=== PATIENT | male | born 1955 | race African-American/Black ===

== ENCOUNTER 2021-11-17 05:19 | Inpatient (IN) | payer MEDICARE, BC ==
[~2021-11-17] VITALS: Ht 185.4 cm; Wt 81.6 kg
[2021-11-17 06:13] LABS: CHLORIDE 107 mEq/L (98-107)
[2021-11-17] MEDS ORDERED: AZITHROMYCIN 500MG/250ML 250 ML IV ONE (06:30)
[2021-11-17] MEDS ORDERED: CEFTRIAXONE 1 G PREMIX 50 ML IV ONE (06:30)
[2021-11-17] MEDS ORDERED: ONDANSETRON HCL 4MG/2ML INJ IV PRN (07:15)
[2021-11-17] MEDS ORDERED: DOCUSATE SODIUM 100MG CAPSULE PO PRN (07:15)
[2021-11-17] MEDS ORDERED: MAGNESIUM/ALUMINUM HYDROXIDE/SIMETHICONE 30ML UDC PO PRN (07:15)
[2021-11-17] MEDS ORDERED: CLONIDINE 0.1MG TABLET PO PRN (07:15)
[2021-11-17] MEDS ORDERED: CEFTRIAXONE 1 G PREMIX 50 ML IV SCH (07:15)
[2021-11-17] MEDS ORDERED: AZITHROMYCIN 500 MG in DEXT 5% WATER 250 ML IV SCH (07:15)
[2021-11-17] MEDS ORDERED: AZITHROMYCIN 500 MG in DEXT 5% WATER 250 ML IV ONE (07:21)
[2021-11-17 07:39] LABS: HEMATOCRIT. 42.5 % (42.0-52.0); HEMOGLOBIN. 14.6 g/dL (14.0-18.0); MEAN CORPUSCULAR HEMOGLOBIN 31.6 pg (28.0-32.0); MEAN CORPUSCULAR VOLUME 91.7 fL (80.0-94.0); MEAN PLATELET VOLUME 7.9 fl (7.4-10.4); PLATELET 305 x1000/uL (130-400); RED BLOOD CELL COUNT 4.63 mill/uL (4.7-6.1)
[2021-11-17 08:26] LABS: PLATELET ESTIMATE NORMAL
[2021-11-17] MEDS: AMLODIPINE 10MG TABLET PO SCH ×2 (10:25→10:37)
[2021-11-17] MEDS: ENOXAPARIN 40MG/0.4ML SYR SUBCUT SCH (10:27)
[2021-11-17 11:51] VITALS: BP 137/73
[2021-11-17 12:05] VITALS: BP 171/73
[2021-11-17] MEDS ORDERED: GUAIFENESIN-DM 200MG-20MG/10ML UDC PO PRN (13:00)
[2021-11-17] MEDS ORDERED: DEXTROSE 50% WATER 50ML SYRINGE IV PRN (13:00)
[2021-11-17] MEDS ORDERED: ALBUTEROL 6.7GM HFA INHALER ORI PRN (13:00)
[2021-11-17] MEDS: INSULIN LISPRO 100 UNITS/ML SUBCUT SCH ×3 (13:10→21:00)
[2021-11-17] MEDS: DEXAMETHASONE 4MG/ML 1ML VIAL IV SCH (13:25)
[2021-11-17 16:00] VITALS: BP 138/79
[2021-11-17] MEDS: BLOOD SUGAR DIAGNOSTIC STRIP TEST SCH ×2 (17:33→21:00)
[2021-11-17 20:37] VITALS: BP 134/86
[2021-11-17 23:59] VITALS: BP 129/75
[2021-11-18 04:00] VITALS: BP 130/77
[2021-11-18 06:28] LABS: CHLORIDE 108 mEq/L (98-107)
[2021-11-18 06:32] LABS: HEMATOCRIT. 39.5 % (42.0-52.0); HEMOGLOBIN. 13.8 g/dL (14.0-18.0); MEAN CORPUSCULAR HEMOGLOBIN 31.8 pg (28.0-32.0); MEAN PLATELET VOLUME 8.2 fl (7.4-10.4); PLATELET 373 x1000/uL (130-400); RED BLOOD CELL COUNT 4.34 mill/uL (4.7-6.1); RED CELL DISTRIBUTION WIDTH 13.8 % (11.6-14.6)
[2021-11-18 06:37] LABS: HDL CHOLESTEROL 28 mg/dL (40-59); LDL CHOLESTEROL 82 mg/dL (5-100)
[2021-11-18 06:45] LABS: CLARITY URINE CLEAR (CLEAR); COLOR URINE YELLOW (YELLOW); KETONES URINE NEGATIVE (NEGATIVE); LEUKOCYTE ESTERASE URINE NEGATIVE (NEGATIVE); NITRITE URINE NEGATIVE (NEGATIVE); OCCULT BLOOD URINE TRACE (NEGATIVE); PROTEIN URINE 2+ (NEGATIVE); SPECIFIC GRAVITY URINE 1.024 (1.005-1.030); UROBILINOGEN URINE 0.2 E.U./dL (0.2-1.0)
[2021-11-18] MEDS: CEFTRIAXONE 1,000 MG in DEXTROSE 5% WATER 50 ML IV SCH (07:14)
[2021-11-18 08:00] VITALS: BP 125/78
[2021-11-18] MEDS: INSULIN LISPRO 100 UNITS/ML SUBCUT SCH ×4 (08:10→21:00)
[2021-11-18] MEDS: BLOOD SUGAR DIAGNOSTIC STRIP TEST SCH ×4 (08:12→21:23)
[2021-11-18] MEDS: AZITHROMYCIN 500MG in DEXTROSE 5% WATER 250ML IV SCH (09:32)
[2021-11-18] MEDS: DEXAMETHASONE 4MG/ML 1ML VIAL IV SCH (09:32)
[2021-11-18] MEDS: ENOXAPARIN 40MG/0.4ML SYR SUBCUT SCH (09:32)
[2021-11-18 10:40] LABS: PLATELET ESTIMATE NORMAL
[2021-11-18] MEDS: ACETAMINOPHEN 325MG TABLET PO PRN ×2 (10:44→23:37)
[2021-11-18 12:00] VITALS: BP 121/72
[2021-11-18 16:00] VITALS: BP 125/78
[2021-11-18 20:39] VITALS: BP 140/87
[2021-11-18] MEDS: GUAIFENESIN 200MG/10ML SUGAR FREE UDC PO PRN (23:37)
[2021-11-19] VITALS (7 sets, daily range): BP systolic 115–134; BP diastolic 69–78
[2021-11-19] MEDS: GUAIFENESIN 200MG/10ML SUGAR FREE UDC PO PRN ×2 (04:44→21:11)
[2021-11-19] MEDS: INSULIN LISPRO 100 UNITS/ML SUBCUT SCH ×4 (07:39→21:00)
[2021-11-19] MEDS: BLOOD SUGAR DIAGNOSTIC STRIP TEST SCH ×4 (07:39→21:06)
[2021-11-19] MEDS: DEXAMETHASONE 4MG/ML 1ML VIAL IV SCH (08:15)
[2021-11-19] MEDS: AZITHROMYCIN 500MG in DEXTROSE 5% WATER 250ML IV SCH (08:15)
[2021-11-19] MEDS: CEFTRIAXONE 1,000 MG in DEXTROSE 5% WATER 50 ML IV SCH (08:16)
[2021-11-19] MEDS: ENOXAPARIN 40MG/0.4ML SYR SUBCUT SCH (08:20)
[2021-11-19] MEDS: AMLODIPINE 10MG TABLET PO SCH (08:20)
[2021-11-19] MEDS: ACETAMINOPHEN 325MG TABLET PO PRN ×2 (10:21→21:12)
[2021-11-19] MEDS: CHOLECALCIFEROL (D3) 1000 UNIT TABLET PO SCH (12:29)
[2021-11-19] MEDS: ASCORBIC ACID 250 MG TABLET PO SCH (12:29)
[2021-11-19] MEDS: ZINC SULFATE 220 MG ( 50 ) CAPSULE PO SCH (12:29)
[2021-11-19] MEDS ORDERED: NALOXONE HCL 0.4MG/ML VIAL IV PRN (22:00)
[2021-11-20 04:00] VITALS: BP 133/72
[2021-11-20] MEDS: BLOOD SUGAR DIAGNOSTIC STRIP TEST SCH ×4 (05:56→21:00)
[2021-11-20] MEDS: CEFTRIAXONE 1,000 MG in DEXTROSE 5% WATER 50 ML IV SCH (06:06)
[2021-11-20] MEDS: AZITHROMYCIN 500MG in DEXTROSE 5% WATER 250ML IV SCH (06:07)
[2021-11-20] MEDS: INSULIN LISPRO 100 UNITS/ML SUBCUT SCH ×2 (08:10→13:10)
[2021-11-20] MEDS: DEXAMETHASONE 4MG/ML 1ML VIAL IV SCH (08:41)
[2021-11-20] MEDS: CHOLECALCIFEROL (D3) 1000 UNIT TABLET PO SCH (08:42)
[2021-11-20] MEDS: ENOXAPARIN 40MG/0.4ML SYR SUBCUT SCH (08:42)
[2021-11-20] MEDS: ASCORBIC ACID 250 MG TABLET PO SCH (08:42)
[2021-11-20] MEDS: ZINC SULFATE 220 MG ( 50 ) CAPSULE PO SCH (08:42)
[2021-11-20] MEDS: AMLODIPINE 10MG TABLET PO SCH (08:44)
[2021-11-20] MEDS: HYDROCODONE/ACETAMINOPHEN 5/325MG TABLET PO PRN (08:46)
[2021-11-20 09:00] VITALS: BP 154/80
[2021-11-20 20:00] VITALS: BP 123/71
[2021-11-20] MEDS ORDERED: LACTULOSE 20G/30ML UDC PO PRN (21:00)
[2021-11-21 06:30] VITALS: BP 143/72
[2021-11-21] MEDS: BLOOD SUGAR DIAGNOSTIC STRIP TEST SCH ×4 (07:40→21:00)
[2021-11-21] MEDS: INSULIN LISPRO 100 UNITS/ML SUBCUT SCH ×4 (08:10→21:00)
[2021-11-21] MEDS: ASCORBIC ACID 250 MG TABLET PO SCH (08:22)
[2021-11-21] MEDS: CEFTRIAXONE 1,000 MG in DEXTROSE 5% WATER 50 ML IV SCH (08:22)
[2021-11-21] MEDS: AZITHROMYCIN 500MG in DEXTROSE 5% WATER 250ML IV SCH (08:22)
[2021-11-21] MEDS: ZINC SULFATE 220 MG ( 50 ) CAPSULE PO SCH (08:22)
[2021-11-21] MEDS: CHOLECALCIFEROL (D3) 1000 UNIT TABLET PO SCH (08:22)
[2021-11-21] MEDS: ENOXAPARIN 40MG/0.4ML SYR SUBCUT SCH (08:22)
[2021-11-21] MEDS: AMLODIPINE 10MG TABLET PO SCH (08:23)
[2021-11-21] MEDS: DEXAMETHASONE 4MG/ML 1ML VIAL IV SCH (08:23)
[2021-11-21] MEDS: GUAIFENESIN 200MG/10ML SUGAR FREE UDC PO PRN (09:19)
[2021-11-21] MEDS: HYDROCODONE/ACETAMINOPHEN 5/325MG TABLET PO PRN ×2 (09:47→18:37)
[2021-11-21] MEDS: GUAIFENESIN 600MG ER TABLET PO SCH ×2 (10:33→21:18)
[2021-11-21 11:56] VITALS: BP 139/73
[2021-11-22] MEDS: ACETAMINOPHEN 325MG TABLET PO PRN (03:27)
[2021-11-22] MEDS: BLOOD SUGAR DIAGNOSTIC STRIP TEST SCH ×4 (06:26→21:00)
[2021-11-22] MEDS: CEFTRIAXONE 1,000 MG in DEXTROSE 5% WATER 50 ML IV SCH (06:27)
[2021-11-22] MEDS: INSULIN LISPRO 100 UNITS/ML SUBCUT SCH ×4 (08:10→21:00)
[2021-11-22] MEDS: AMLODIPINE 10MG TABLET PO SCH (09:00)
[2021-11-22] MEDS: ZINC SULFATE 220 MG ( 50 ) CAPSULE PO SCH (10:18)
[2021-11-22] MEDS: DEXAMETHASONE 4MG/ML 1ML VIAL IV SCH (10:18)
[2021-11-22] MEDS: ENOXAPARIN 40MG/0.4ML SYR SUBCUT SCH (10:18)
[2021-11-22] MEDS: GUAIFENESIN 600MG ER TABLET PO SCH ×2 (10:19→21:00)
[2021-11-22] MEDS: CHOLECALCIFEROL (D3) 1000 UNIT TABLET PO SCH (10:19)
[2021-11-22] MEDS: ASCORBIC ACID 250 MG TABLET PO SCH (10:19)
[2021-11-22 13:29] VITALS: BP 143/76
[2021-11-22 16:50] VITALS: BP 137/79
[2021-11-22 20:00] VITALS: BP 134/74
[2021-11-23] MEDS: BLOOD SUGAR DIAGNOSTIC STRIP TEST SCH ×4 (07:40→20:56)
[2021-11-23] MEDS: INSULIN LISPRO 100 UNITS/ML SUBCUT SCH ×4 (07:51→20:56)
[2021-11-23] MEDS: AMLODIPINE 10MG TABLET PO SCH (08:09)
[2021-11-23] MEDS ORDERED: SODIUM CHLORIDE 45ML SPRAY NS PRN (08:15)
[2021-11-23] MEDS: DEXAMETHASONE 4MG/ML 1ML VIAL IV SCH (09:31)
[2021-11-23] MEDS: ASCORBIC ACID 250 MG TABLET PO SCH (09:31)
[2021-11-23] MEDS: CHOLECALCIFEROL (D3) 1000 UNIT TABLET PO SCH (09:31)
[2021-11-23] MEDS: CEFTRIAXONE 1,000 MG in DEXTROSE 5% WATER 50 ML IV SCH (09:31)
[2021-11-23] MEDS: ZINC SULFATE 220 MG ( 50 ) CAPSULE PO SCH (09:31)
[2021-11-23] MEDS: GUAIFENESIN 600MG ER TABLET PO SCH ×2 (09:31→23:41)
[2021-11-23] MEDS: ENOXAPARIN 40MG/0.4ML SYR SUBCUT SCH (09:33)
[2021-11-23] MEDS: HYDROCODONE/ACETAMINOPHEN 5/325MG TABLET PO PRN ×2 (11:24→17:49)
[2021-11-23 12:00] VITALS: BP 154/90
[2021-11-23] MEDS: ACETAMINOPHEN 325MG TABLET PO PRN ×2 (13:52→23:41)
[2021-11-23] MEDS ORDERED: LORAZEPAM 2MG/ML CPJ IV PRN (14:45)
[2021-11-23 16:00] VITALS: BP 155/91
[2021-11-23] MEDS: ALBUTEROL 6.7GM HFA INHALER ORI SCH ×2 (17:49→22:00)
[2021-11-23 20:00] VITALS: BP 117/80
[2021-11-24 00:12] VITALS: BP 160/94
[2021-11-24] MEDS: HYDROCODONE/ACETAMINOPHEN 5/325MG TABLET PO PRN (03:57)
[2021-11-24] MEDS: ALBUTEROL 6.7GM HFA INHALER ORI SCH ×4 (04:00→21:50)
[2021-11-24] MEDS: BLOOD SUGAR DIAGNOSTIC STRIP TEST SCH ×4 (07:13→21:55)
[2021-11-24] MEDS: INSULIN LISPRO 100 UNITS/ML SUBCUT SCH ×4 (07:17→21:00)
[2021-11-24 07:55] VITALS: BP 118/81
[2021-11-24] MEDS: AMLODIPINE 10MG TABLET PO SCH (09:00)
[2021-11-24] MEDS: ENOXAPARIN 40MG/0.4ML SYR SUBCUT SCH (09:00)
[2021-11-24] MEDS: ASCORBIC ACID 250 MG TABLET PO SCH (09:09)
[2021-11-24] MEDS: GUAIFENESIN 600MG ER TABLET PO SCH ×2 (09:09→21:49)
[2021-11-24] MEDS: ZINC SULFATE 220 MG ( 50 ) CAPSULE PO SCH (09:09)
[2021-11-24] MEDS: DEXAMETHASONE 4MG/ML 1ML VIAL IV SCH (09:09)
[2021-11-24] MEDS: CHOLECALCIFEROL (D3) 1000 UNIT TABLET PO SCH (09:09)
[2021-11-24 15:50] VITALS: BP 147/90
[2021-11-24 23:01] VITALS: BP 132/79
[2021-11-25] MEDS: ALBUTEROL 6.7GM HFA INHALER ORI SCH ×4 (05:48→21:45)
[2021-11-25 06:00] VITALS: BP 139/79
[2021-11-25 06:58] LABS: HEMATOCRIT. 45.7 % (42.0-52.0); HEMOGLOBIN. 15.3 g/dL (14.0-18.0); MEAN CORPUSCULAR VOLUME 92.7 fL (80.0-94.0); MEAN PLATELET VOLUME 8.2 fl (7.4-10.4); PLATELET 283 x1000/uL (130-400); RED BLOOD CELL COUNT 4.93 mill/uL (4.7-6.1); RED CELL DISTRIBUTION WIDTH 13.6 % (11.6-14.6)
[2021-11-25 07:40] LABS: CHLORIDE 103 mEq/L (98-107)
[2021-11-25] MEDS: BLOOD SUGAR DIAGNOSTIC STRIP TEST SCH ×4 (07:40→21:45)
[2021-11-25] MEDS: INSULIN LISPRO 100 UNITS/ML SUBCUT SCH ×4 (08:10→21:00)
[2021-11-25] MEDS: CHOLECALCIFEROL (D3) 1000 UNIT TABLET PO SCH (08:26)
[2021-11-25] MEDS: AMLODIPINE 10MG TABLET PO SCH (08:26)
[2021-11-25] MEDS: ZINC SULFATE 220 MG ( 50 ) CAPSULE PO SCH (08:26)
[2021-11-25] MEDS: ASCORBIC ACID 250 MG TABLET PO SCH (08:26)
[2021-11-25] MEDS: ACETAMINOPHEN 325MG TABLET PO PRN ×2 (08:26→23:15)
[2021-11-25] MEDS: GUAIFENESIN 600MG ER TABLET PO SCH ×2 (08:26→21:00)
[2021-11-25] MEDS: ENOXAPARIN 40MG/0.4ML SYR SUBCUT SCH ×2 (08:27→08:39)
[2021-11-25] MEDS: DEXAMETHASONE 4MG/ML 1ML VIAL IV SCH (09:19)
[2021-11-25 12:00] VITALS: BP 144/82
[2021-11-25 12:10] LABS: PLATELET ESTIMATE NORMAL
[2021-11-25 21:45] VITALS: BP 145/81
[2021-11-25] MEDS: GUAIFENESIN 200MG/10ML SUGAR FREE UDC PO PRN (23:15)
[2021-11-26] MEDS: ALBUTEROL 6.7GM HFA INHALER ORI SCH ×4 (04:00→21:08)
[2021-11-26] MEDS: BLOOD SUGAR DIAGNOSTIC STRIP TEST SCH ×4 (07:40→21:06)
[2021-11-26] MEDS: INSULIN LISPRO 100 UNITS/ML SUBCUT SCH ×4 (08:10→21:00)
[2021-11-26] MEDS: ASCORBIC ACID 250 MG TABLET PO SCH (08:51)
[2021-11-26] MEDS: ZINC SULFATE 220 MG ( 50 ) CAPSULE PO SCH (08:51)
[2021-11-26] MEDS: GUAIFENESIN 600MG ER TABLET PO SCH ×2 (08:51→21:07)
[2021-11-26] MEDS: CHOLECALCIFEROL (D3) 1000 UNIT TABLET PO SCH (08:51)
[2021-11-26] MEDS: AMLODIPINE 10MG TABLET PO SCH (08:52)
[2021-11-26] MEDS: ACETAMINOPHEN 325MG TABLET PO PRN ×2 (08:52→21:07)
[2021-11-26] MEDS: DEXAMETHASONE 4MG/ML 1ML VIAL IV SCH (08:52)
[2021-11-26] MEDS: ENOXAPARIN 40MG/0.4ML SYR SUBCUT SCH (08:53)
[2021-11-26 09:09] VITALS: BP 147/83
[2021-11-26 16:04] VITALS: BP 140/88
[2021-11-26 19:30] VITALS: BP 156/95
[2021-11-26 20:00] VITALS: BP 140/88
[2021-11-26] MEDS: HYDROCODONE/ACETAMINOPHEN 5/325MG TABLET PO PRN (23:56)
[2021-11-27] VITALS: BP 130/80
[2021-11-27 04:00] VITALS: BP 132/82
[2021-11-27] MEDS: ALBUTEROL 6.7GM HFA INHALER ORI SCH ×4 (04:00→20:27)
[2021-11-27] MEDS: BLOOD SUGAR DIAGNOSTIC STRIP TEST SCH ×4 (07:35→20:20)
[2021-11-27 08:00] VITALS: BP 144/89
[2021-11-27] MEDS: INSULIN LISPRO 100 UNITS/ML SUBCUT SCH ×4 (08:15→20:27)
[2021-11-27] MEDS: ENOXAPARIN 40MG/0.4ML SYR SUBCUT SCH ×2 (09:00→09:28)
[2021-11-27] MEDS: AMLODIPINE 10MG TABLET PO SCH ×2 (09:00→09:28)
[2021-11-27] MEDS: ASCORBIC ACID 250 MG TABLET PO SCH (09:27)
[2021-11-27] MEDS: ZINC SULFATE 220 MG ( 50 ) CAPSULE PO SCH (09:27)
[2021-11-27] MEDS: GUAIFENESIN 600MG ER TABLET PO SCH ×2 (09:28→20:20)
[2021-11-27] MEDS: CHOLECALCIFEROL (D3) 1000 UNIT TABLET PO SCH (09:28)
[2021-11-27] MEDS: DEXAMETHASONE 4MG/ML 1ML VIAL IV SCH (09:29)
[2021-11-27 12:00] VITALS: BP 128/89
[2021-11-27 16:00] VITALS: BP 143/89
[2021-11-28] MEDS: ALBUTEROL 6.7GM HFA INHALER ORI SCH ×4 (04:00→21:34)
[2021-11-28] MEDS: INSULIN LISPRO 100 UNITS/ML SUBCUT SCH ×4 (07:39→21:31)
[2021-11-28] MEDS: BLOOD SUGAR DIAGNOSTIC STRIP TEST SCH ×4 (07:39→21:31)
[2021-11-28 08:00] VITALS: BP 146/82
[2021-11-28] MEDS: ZINC SULFATE 220 MG ( 50 ) CAPSULE PO SCH (09:31)
[2021-11-28] MEDS: ASCORBIC ACID 250 MG TABLET PO SCH (09:32)
[2021-11-28] MEDS: ENOXAPARIN 40MG/0.4ML SYR SUBCUT SCH (09:32)
[2021-11-28] MEDS: GUAIFENESIN 600MG ER TABLET PO SCH ×2 (09:32→21:32)
[2021-11-28] MEDS: CHOLECALCIFEROL (D3) 1000 UNIT TABLET PO SCH (09:32)
[2021-11-28] MEDS: AMLODIPINE 10MG TABLET PO SCH (09:32)
[2021-11-28 15:05] LABS: BG BASE EXCESS 4.9 mmol/L (-2.0-2.0); BG FRACTION INSPIRED OXYGEN 100; BG HCO3 ACT 27.7 mmol/L (22.0-26.0); BG PCO2 35.2 mmHg (35.0-45.0); BG PH 7.514 (7.350-7.450); BG PO2 82.6 mmHg (75.0-100.0); BG SAMPLE SITE RIGHT RADIAL; BG VENT MODE HIGH FLOW
[2021-11-28 16:00] VITALS: BP 131/79
[2021-11-28] MEDS: DEXAMETHASONE 10 MG/ML VIAL IV SCH (18:11)
[2021-11-28 20:00] VITALS: BP_SYST 135; BP_SYST 138; BP_DIAS 78; BP_DIAS 84
[2021-11-28] MEDS: ACETAMINOPHEN 325MG TABLET PO PRN (21:33)
[2021-11-29] MEDS: ALBUTEROL 6.7GM HFA INHALER ORI SCH ×4 (03:57→22:00)
[2021-11-29 04:00] VITALS: BP 145/79
[2021-11-29] MEDS: BLOOD SUGAR DIAGNOSTIC STRIP TEST SCH ×4 (07:16→21:57)
[2021-11-29] MEDS: INSULIN LISPRO 100 UNITS/ML SUBCUT SCH ×4 (07:16→21:56)
[2021-11-29 08:00] VITALS: BP 143/80
[2021-11-29] MEDS: CHOLECALCIFEROL (D3) 1000 UNIT TABLET PO SCH (09:00)
[2021-11-29] MEDS: DEXAMETHASONE 10 MG/ML VIAL IV SCH (10:04)
[2021-11-29] MEDS: ASCORBIC ACID 250 MG TABLET PO SCH (10:04)
[2021-11-29] MEDS: AMLODIPINE 10MG TABLET PO SCH (10:04)
[2021-11-29] MEDS: ZINC SULFATE 220 MG ( 50 ) CAPSULE PO SCH (10:04)
[2021-11-29] MEDS: ENOXAPARIN 40MG/0.4ML SYR SUBCUT SCH (10:06)
[2021-11-29] MEDS: GUAIFENESIN 600MG ER TABLET PO SCH ×2 (10:12→21:56)
[2021-11-29 12:00] VITALS: BP 158/89
[2021-11-29 16:00] VITALS: BP 137/86
[2021-11-29] MEDS: ACETAMINOPHEN 325MG TABLET PO PRN ×2 (17:49→23:48)
[2021-11-29] MEDS ORDERED: NALOXONE HCL 0.4MG/ML VIAL IV PRN (19:00)
[2021-11-29] MEDS: HYDROCODONE/APAP 7.5/325MG 1 TAB TABLET PO PRN (19:17)
[2021-11-29 20:00] VITALS: BP 168/101
[2021-11-30] VITALS: BP 131/88
[2021-11-30 04:00] VITALS: BP 136/92
[2021-11-30] MEDS: ALBUTEROL 6.7GM HFA INHALER ORI SCH ×4 (04:00→20:30)
[2021-11-30 04:32] LABS: BG BASE EXCESS 0.6 mmol/L (-2.0-2.0); BG CARBOXYHEMOGLOBIN 0.3 % (0.5-1.5); BG DEOXYHEMOGLOBIN 14.5 % (0.0-5.0); BG FRACTION INSPIRED OXYGEN 100; BG HCO3 ACT 26.2 mmol/L (22.0-26.0); BG METHEMOGLOBIN 0.3 % (0.0-1.5); BG OXYGEN SATURATION 85.4 % (92.0-98.5); BG OXYHEMOGLOBIN 84.9 % (94.0-97.0); BG PCO2 45.7 mmHg (35.0-45.0); BG PH 7.377 (7.350-7.450); BG PO2 53.3 mmHg (75.0-100.0); BG SAMPLE SITE RIGHT RADIAL; BG TOTAL HEMOGLOBIN 14.9 g/dL (12.0-18.0); BG TOTAL RESPIRATORY RATE 47 b/min
[2021-11-30] MEDS: HYDROCODONE/APAP 7.5/325MG 1 TAB TABLET PO PRN (05:19)
[2021-11-30] MEDS: BLOOD SUGAR DIAGNOSTIC STRIP TEST SCH ×4 (07:02→20:30)
[2021-11-30 08:00] VITALS: BP 147/87
[2021-11-30] MEDS: INSULIN LISPRO 100 UNITS/ML SUBCUT SCH ×4 (08:10→20:36)
[2021-11-30] MEDS: ENOXAPARIN 40MG/0.4ML SYR SUBCUT SCH (09:00)
[2021-11-30] MEDS: AMLODIPINE 10MG TABLET PO SCH (09:00)
[2021-11-30] MEDS: ASCORBIC ACID 250 MG TABLET PO SCH (09:03)
[2021-11-30] MEDS: DEXAMETHASONE 10 MG/ML VIAL IV SCH (09:03)
[2021-11-30] MEDS: ZINC SULFATE 220 MG ( 50 ) CAPSULE PO SCH (09:03)
[2021-11-30] MEDS: CHOLECALCIFEROL (D3) 1000 UNIT TABLET PO SCH (09:03)
[2021-11-30] MEDS: GUAIFENESIN 600MG ER TABLET PO SCH ×2 (09:04→20:29)
[2021-11-30 12:00] VITALS: BP 127/78
[2021-11-30 16:23] VITALS: BP 148/89
[2021-11-30 20:01] VITALS: BP 139/74
[2021-12-01 00:07] VITALS: BP 101/51
[2021-12-01 04:00] VITALS: BP 131/74
[2021-12-01] MEDS: ALBUTEROL 6.7GM HFA INHALER ORI SCH ×4 (04:00→21:32)
[2021-12-01] MEDS: INSULIN LISPRO 100 UNITS/ML SUBCUT SCH ×4 (05:29→21:31)
[2021-12-01] MEDS: BLOOD SUGAR DIAGNOSTIC STRIP TEST SCH ×4 (05:29→21:29)
[2021-12-01 08:00] VITALS: BP 146/85
[2021-12-01] MEDS: AMLODIPINE 10MG TABLET PO SCH (09:00)
[2021-12-01] MEDS: ENOXAPARIN 40MG/0.4ML SYR SUBCUT SCH (09:00)
[2021-12-01] MEDS: GUAIFENESIN 600MG ER TABLET PO SCH ×2 (09:21→21:29)
[2021-12-01] MEDS: ZINC SULFATE 220 MG ( 50 ) CAPSULE PO SCH (09:21)
[2021-12-01] MEDS: CHOLECALCIFEROL (D3) 1000 UNIT TABLET PO SCH (09:21)
[2021-12-01] MEDS: ASCORBIC ACID 250 MG TABLET PO SCH (09:21)
[2021-12-01] MEDS: DEXAMETHASONE 10 MG/ML VIAL IV SCH (09:21)
[2021-12-01] MEDS ORDERED: METOPROLOL TARTRATE 5MG/5ML VIAL IV PRN (10:45)
[2021-12-01] MEDS: METOPROLOL TARTRATE 25MG TABLET PO SCH ×2 (11:09→21:29)
[2021-12-01 12:00] VITALS: BP 106/68
[2021-12-01 16:00] VITALS: BP 106/76
[2021-12-01 20:00] VITALS: BP 117/73
[2021-12-02] VITALS (19 sets, daily range): BP systolic 107–139; BP diastolic 54–89
[2021-12-02] MEDS: ALBUTEROL (0.083%) 2.5MG/3ML NEB HHN SCH ×3 (00:25→13:25)
[2021-12-02 06:01] LABS: HEMATOCRIT. 39.7 % (42.0-52.0); HEMOGLOBIN. 12.9 g/dL (14.0-18.0); MEAN CORPUSCULAR HEMOGLOBIN 30.3 pg (28.0-32.0); MEAN CORPUSCULAR VOLUME 93.3 fL (80.0-94.0); MEAN PLATELET VOLUME 9.8 fl (7.4-10.4); PLATELET 94 x1000/uL (130-400); RED BLOOD CELL COUNT 4.26 mill/uL (4.7-6.1); RED CELL DISTRIBUTION WIDTH 13.6 % (11.6-14.6)
[2021-12-02] MEDS: INSULIN LISPRO 100 UNITS/ML SUBCUT SCH ×4 (08:00→20:54)
[2021-12-02] MEDS: BLOOD SUGAR DIAGNOSTIC STRIP TEST SCH ×4 (08:05→20:54)
[2021-12-02] MEDS: METOPROLOL TARTRATE 25MG TABLET PO SCH ×2 (08:05→20:54)
[2021-12-02] MEDS: AMLODIPINE 10MG TABLET PO SCH (08:09)
[2021-12-02] MEDS: DEXAMETHASONE 10 MG/ML VIAL IV SCH (08:14)
[2021-12-02] MEDS: ASCORBIC ACID 250 MG TABLET PO SCH (08:14)
[2021-12-02] MEDS: GUAIFENESIN 600MG ER TABLET PO SCH ×2 (08:14→20:53)
[2021-12-02] MEDS: ZINC SULFATE 220 MG ( 50 ) CAPSULE PO SCH (08:14)
[2021-12-02] MEDS: CHOLECALCIFEROL (D3) 1000 UNIT TABLET PO SCH (08:14)
[2021-12-02] MEDS: ENOXAPARIN 40MG/0.4ML SYR SUBCUT SCH (08:19)
[2021-12-02 13:07] LABS: PLATELET ESTIMATE DECREASED
[2021-12-02] MEDS ORDERED: IPRATROPIUM/ALBUTEROL 0.5-3(2.5)MG/3ML NEB HHN PRN (14:45)
[2021-12-03] VITALS (62 sets, daily range): BP systolic 53–127; BP diastolic 14–78
[2021-12-03] MEDS: IPRATROPIUM/ALBUTEROL 0.5-3(2.5)MG/3ML NEB HHN SCH ×4 (04:24→20:53)
[2021-12-03] MEDS: BLOOD SUGAR DIAGNOSTIC STRIP TEST SCH ×3 (07:30→21:00)
[2021-12-03] MEDS: INSULIN LISPRO 100 UNITS/ML SUBCUT SCH ×4 (07:39→21:00)
[2021-12-03] MEDS: ENOXAPARIN 40MG/0.4ML SYR SUBCUT SCH (09:00)
[2021-12-03] MEDS: AMLODIPINE 10MG TABLET PO SCH (09:00)
[2021-12-03] MEDS: METOPROLOL TARTRATE 25MG TABLET PO SCH ×2 (09:00→21:00)
[2021-12-03] MEDS: GUAIFENESIN 600MG ER TABLET PO SCH ×2 (09:11→21:00)
[2021-12-03] MEDS: ASCORBIC ACID 250 MG TABLET PO SCH (09:11)
[2021-12-03] MEDS: CHOLECALCIFEROL (D3) 1000 UNIT TABLET PO SCH (09:11)
[2021-12-03] MEDS: DEXAMETHASONE 10 MG/ML VIAL IV SCH (09:11)
[2021-12-03] MEDS: ZINC SULFATE 220 MG ( 50 ) CAPSULE PO SCH (09:11)
[2021-12-03] MEDS ORDERED: SODIUM CHLORIDE 0.9% 500 ML IV ONE (10:30)
[2021-12-03] MEDS: MIDODRINE HCL 5MG TABLET PO SCH ×3 (10:38→22:00)
[2021-12-03] MEDS: NOREPINEPHRINE 8 MG in DEXT 5% WATER 242 ML IV PRN ×2 (12:39→20:09)
[2021-12-03 17:12] LABS: HEMOGLOBIN. 10.6 g/dL (14.0-18.0); MEAN CORPUSCULAR HEMOGLOBIN 29.3 pg (28.0-32.0); MEAN CORPUSCULAR VOLUME 99.9 fL (80.0-94.0); MEAN PLATELET VOLUME 10.5 fl (7.4-10.4); PLATELET 91 x1000/uL (130-400); RED CELL DISTRIBUTION WIDTH 14.8 % (11.6-14.6)
[2021-12-03] MEDS ORDERED: DEXT 5%/0.45% NACL 1000ML 1,000 ML IV SCH (20:00)
[2021-12-03] MEDS ORDERED: NOREPINEPHRINE 32 MG in DEXT 5% WATER 218 ML IV PRN (20:15)
[2021-12-03 20:34] LABS: PLATELET ESTIMATE DECREASED
[2021-12-04 00:01] VITALS: BP 61/18
[2021-12-04] MEDS ORDERED: SODIUM BICARBONATE 8.4% 1 MEQ/ML 50ML SYR IV ONE (09:27)
[2021-12-04] MEDS ORDERED: DEXTROSE 50% WATER 50ML SYRINGE IV ONE (09:27)
[2021-12-04] MEDS ORDERED: VECURONIUM BROMIDE 10 MG/VIAL IV ONE (09:27)
[2021-12-04] MEDS ORDERED: ETOMIDATE 2MG/ML 10ML VIAL IV ONE (09:27)
[2021-12-04] MEDS ORDERED: EPINEPHRINE 0.1MG/ML (1:10,000) 10ML SYR ONE (09:27)
[2021-12-04] MEDS ORDERED: LIDOCAINE HCL 2% 5ML SYRINGE IV ONE (09:27)
[2021-12-04] MEDS ORDERED: CALCIUM CHLORIDE 1GM/10ML SYR IV ONE (09:27)
== END 2021-12-04 00:40 | DRG 871 ==
LOC: ER 05:19 → 7WST 06:28 → EDBEDREQ 06:43 → EDBEDREQSVC 06:43 → EDBEDREQTM 06:43 → ENRESERV 09:21 → 5EST 12-01 22:57 → MICUSO 12-03 11:31
PROVIDERS: ADMIT Hospitalist; ATTEND Hospitalist
PROC: 5A0945A Assistance with Respiratory Ventilation, 24-96 Consecutive Hours, High Flow/Velocity Cannula (ICD-10-PCS; 2021-11-26)
PROC: 5A0935A Assistance with Respiratory Ventilation, Less than 24 Consecutive Hours, High Flow/Velocity Cannula (ICD-10-PCS; 2021-11-28)
PROC: 5A09457 Assistance with Respiratory Ventilation, 24-96 Consecutive Hours, Continuous Positive Airway Pressure (ICD-10-PCS; 2021-11-29)
PROC: 5A0935A Assistance with Respiratory Ventilation, Less than 24 Consecutive Hours, High Flow/Velocity Cannula (ICD-10-PCS; 2021-11-29)
PROC: 5A09457 Assistance with Respiratory Ventilation, 24-96 Consecutive Hours, Continuous Positive Airway Pressure (ICD-10-PCS; 2021-12-01)
PROC: 5A12012 Performance of Cardiac Output, Single, Manual (ICD-10-PCS; principal; 2021-12-04)
PROC: 0BH17EZ Insertion of Endotracheal Airway into Trachea, Via Natural or Artificial Opening (ICD-10-PCS; 2021-12-04)
PROC: 5A1935Z Respiratory Ventilation, Less than 24 Consecutive Hours (ICD-10-PCS; 2021-12-04)
DX: A41.89 Other specified sepsis (principal); J96.01 Acute respiratory failure with hypoxia; U07.1 COVID-19; J12.82 Pneumonia due to coronavirus disease 2019; N17.9 Acute kidney failure, unspecified; I11.9 Hypertensive heart disease without heart failure; R74.01 Elevation of levels of liver transaminase levels; E11.65 Type 2 diabetes mellitus with hyperglycemia; I46.9 Cardiac arrest, cause unspecified; D69.6 Thrombocytopenia, unspecified; R57.1 Hypovolemic shock
CPT/HCPCS: 36415; 36600; 71045; 80048; 80053; 80061; 81003; 82375; 82728; 82805; 82962; 83036; 83605; 83880; 84145; 84484; 85025; 85379; 86140; 87426; 87804; 93005; 93970; 94640; 94660; 99291; C1893; J0456; J0696; J1100; J1650; J1815; J3490; J7040; J7042; J7060; U0003; U0005